=== PATIENT | female | born 1985 | race Caucasian/White ===

== ENCOUNTER 2022-07-01 09:17 | Outpatient (CLI) | payer BC, SELFPAY ==
--- NOTE | ~2022-07-01 | CT_ITS ---
EXAMINATION: CT abdomen pelvis wo con DATE: 07/01/2022 10:13 INDICATION: Back pain. Nausea, vomiting, diarrhea, fever, chills. Proteinuria. TECHNIQUE: Computed tomography (CT) of the abdomen and pelvis was performed without intravenous contr ast. Automated exposure control and iterative reconstruction technique were employed. Exam dose: 511 .15 mGy-cm total exam DLP. COMPARISON: None. FINDINGS: Posteromedial basilar right lower lobe calcified pulmonary granuloma. Minimal discoid atele ctasis or scarring at the lung bases. No basilar consolidation. Normal heart size. No pericardial or pleural effusion. Small sliding hiatal hernia. The liver, gallbladder, bile ducts, pancreas and pancreatic duct as well as the spleen appear normal. Normal morphology of the adrenal glands. There is a pinpoint nonobstructing right renal calculus. No other urinary tract calculus or hydrouret eronephrosis. No renal mass lesion or scarring is detected on this limited noncontrast examination. Normal caliber of the abdominal aorta. No intraperitoneal or retroperitoneal or pelvic mass lesion or adenopathy or ascites is detected. The urinary bladder, uterus and adnexal areas are unremarkable. Normal appendix. There are fluid distended small bowel segments without abnormal dilatation, with occ asional air-fluid levels which may represent enteritis or mild adynamic ileus. No bowel obstruction, bowel wall thickening, pneumatosis, intraperitoneal free air or portal venous gas. Very small fat-containing umbilical hernia. Moderate moderate loss of height and anterior wedging of T9 with Schmorl's nodes, chronic. No suspici ous osteolytic or osteoblastic lesions. IMPRESSION: Nondilated fluid containing small bowel with air-fluid levels, which may be due to enter itis or mild adynamic ileus No bowel obstruction or intraperitoneal free air Normal appendix Reviewed, dictated and finalized at [facility]. Reviewed, dictated and finalized at location [facility]. ESS SPECIALIST IMPRESSION: Nondilated fluid containing small bowel with air-fluid levels, whi ch may be due to enteritis or mild adynamic ileus No bowel obstruction or intraperitoneal free air Normal appendix
[2022-07-01 10:13] LABS: Basophils Percent Auto 0.3 % (0.2-1.2); Eosinophils Absolute Auto 0.1 K/mm3 (0-0.3); Eosinophils Percent Auto 1.7 % (0-4.4); Hematocrit 43.9 % (37.0-47.0); Hemoglobin 14.6 g/dL (12.0-15.0); Immature Granulocyte Absolute 0.03 K/mm3 (0.00-0.031); Immature Granulocyte Percent A 0.5 % (0-0.5); Lymphocytes Absolute Auto 0.97 K/mm3 (0.9-3.2); Lymphocytes Percent Auto 14.8 % (18.3-44.2); Mean Corpuscular HGB Conc 33.3 g/dl (32-36); Mean Corpuscular Hemoglobin 29.1 pg (26-34); Mean Corpuscular Volume 87.5 fl (80-100); Mean Platelet Volume 9.5 fl (7.4-10.4); Monocytes Absolute Auto 0.4 K/mm3 (0.1-0.6); Monocytes Percent Auto 5.6 % (2.6-8.5); Neutrophils Absolute Auto 5.1 K/mm3 (1.3-6.7); Neutrophils Percent Auto 77.1 % (45.5-73.1); Platelet Count Result 243 k/mm3 (150-375); Red Blood Count 5.02 M/mm3 (4.2-5.4); Red Cell Distribution Width 12.8 % (11.5-14.5); White Blood Count 6.6 K/mm3 (4.5-10.0)
[2022-07-01 10:31] LABS: Alanine Aminotransferase 24 U/L (6-35); Albumin Level 4.3 g/dL (3.5-5.1); Alkaline Phosphatase 92 U/L (38-126); Anion Gap 10 mmol/L (8-16); Aspartate Amino Transferase 28 U/L (14-36); Bilirubin,Total 0.5 mg/dL (0.2-1.3); Blood Urea Nitrogen 13 mg/dL (7-17); CRP 7.1 mg/dL (<1.0); Calcium 8.4 mg/dL (8.4-10.2); Carbon Dioxide 25 mmol/L (22-30); Chloride 100 mmol/L (98-107); Estimated Glomerular Filt Rate > 60; Glucose 93 mg/dL (65-110); Potassium 3.7 mmol/L (3.4-5.0); Sodium 135 mmol/L (137-145)
[2022-07-01 11:14] LABS: Erythrocyte Sedimentation Rate 11 mm/hr (0-20)
[2022-07-05 09:02] LABS: ANA Cascade Screen Negative (Negative)
== END 2022-07-01 09:18 | disposition home or self-care (01) ==
PROVIDERS: PCP Family Medicine; Visit Provider Family Medicine
DX: R11.2 Nausea with vomiting, unspecified (principal); R80.9 Proteinuria, unspecified; R52 Pain, unspecified
CPT/HCPCS: 36415; 74176; 80053; 85025; 85652; 86038; 86140

== ENCOUNTER 2025-07-23 12:46 | Outpatient (CLI) | payer OTHER, SELFPAY ==
--- NOTE | ~2025-07-23 | US_ITS ---
EXAMINATION: US thyroid DATE: 07/23/2025 13:26 INDICATION: History of goiter. TECHNIQUE: Multiple ultrasound images of the thyroid were obtained. COMPARISON: None. FINDINGS: The right thyroid lobe measures 4.4 x 1.5 x 1.6 cm cm. The left thyroid lobe measures 5. 2 x 2 by 1.6 cm cm. The altered echotexture of the thyroid gland suggests chronic thyroid disease with heterogeneous echotexture. Fairly well- defined moderately hyperechoic nodule in the inferior left lobe of the thyroid gland measures 2 x 1.6 cm in size. The shape of the nodule is circular without microcalcifications. No other focal lesions. IMPRESSION: 1. Evaluation limited due to lack of prior imaging studies for comparison of the thyroid. 2. Normal size thyroid gland with altered echotexture due to chronic thyroid disease. Please correlate with lab results. 3. Fairly well-circumscribed rounded, mildly hyperechoic nodule in the lower left lobe of the thyroid gland 2 x 1.6 centimeters in size. Indeterminate lesion at this time. Probably benign morphology. Comparison with prior studies is indicated. Short interval follow-up at 6 months is suggested. Ti rads category 3 Reviewed, dictated and finalized at location T. OM TURNING LATHE TURNER IMPRESSION: 1. Evaluation limited due to lack of prior imaging studies for comparison of th e thyroid. 2. Normal size thyroid gland with altered echotexture due to chronic thyroid di sease. Please correlate with lab results. 3. Fairly well-circumscribed rounded, mildly hyperechoic nodule in the lower le ft lobe of the thyroid gland 2 x 1.6 centimeters in size. Indeterminate lesion at this time. Probably benign morphology. Comparison with prior studies is tacho cated. Short interval follow-up at 6 months is suggested. Ti rads category 3
--- NOTE | ~2025-07-23 | MMUS_ITS ---
EXAMINATION: US axilla RT, MM diagnostic sara BI w shelby HISTORY: Palpable abnormality, right axilla TECHNIQUE: Craniocaudal and mediolateral oblique 3-D tomosynthesis images were obtained and synthetic 2-D images were generated. CAD analysis was submitted and interpreted. Grayscale sonography over the area(s) of interest with color Doppler if there is a finding. COMPARISON: None available. BREAST PARENCHYMAL COMPOSITION: Dense: The breasts are heterogeneously dense MAMMOGRAM FINDINGS: There is a mass in the right axilla, corresponding to the palpable abnormality. There are no suspicious calcifications. No unexplained architectural distortion is seen. There are no skin or nipple abnormalities identified. There is no adenopathy seen on the images submitted. ULTRASOUND FINDINGS: Sonography through the area of palpable concern in the right axilla demonstrates a macrolobulated hypoechoic mass, which is mildly heterogeneous in echotexture. The maximum dimension is 2.6 cm. It has a parallel orientation. Only benign-appearing lymph nodes are seen elsewhere. IMPRESSION: Mass in the right axilla, seen by both mammography and ultrasound. Ultrasound- guided core biopsy is recommended. BI-RADS 4 - Suspicious for malignancy. Tissue diagnosis is recommended. Reviewed, dictated and finalized at location C. STANT ART DIRECTOR IMPRESSION: Mass in the right axilla, seen by both mammography and ultrasound. Ultrasound-g uided core biopsy is recommended. BI-RADS 4 - Suspicious for malignancy. Tissue diagnosis is recommended.
== END 2025-07-23 12:47 | disposition home or self-care (01) ==
LOC: MICIMG 12:47
PROVIDERS: PCP Family Medicine; Visit Provider Physician Assistant
DX: E04.9 Nontoxic goiter, unspecified (principal); R92.8 Other abnormal and inconclusive findings on diagnostic imaging of breast
CPT/HCPCS: 76536; 76882; 77062; 77066; G0279

== ENCOUNTER 2025-07-29 07:41 | Outpatient (CLI) | payer OTHER, SELFPAY ==
--- NOTE | ~2025-07-29 | MMUS_ITS ---
PROCEDURE: US_BXSTAXLIMG_US, MM post biopsy diagnostic RT. CLINICAL HISTORY: 40-year-old female with suspicious mass in the right axilla presents for ultrasound-guided core needle biopsy procedure. COMPARISON: 07/23/2025 Following informed consent including risks, benefits, and possible complications, the patient was brought to the ultrasound suite. A time-out procedure was performed. A preliminary ultrasound of the right axilla was performed, redemonstrating an heterogeneous mass. The patient was prepped and draped in the usual sterile fashion. 1% lidocaine was instilled into the subcutaneous tissues. 1% lidocaine without epinephrine was injected into the deep tissues just inferior to the lesion. Approximately 15cc lidocaine was administered. A small skin gabi was made. Multiple core samples were obtained with a 13-gauge vacuum assisted biopsy needle. A post biopsy metal marker was placed at the biopsy site. Postprocedural mammogram of the right axilla in mediolateral projections reveal the post biopsy [facility] butterfly marker in good position. The patient tolerated the procedure well and was without immediate postprocedural complications. IMPRESSION: Successful ultrasound guided biopsy of right axilla mass. A post biopsy metal marker was placed at the biopsy site, which is seen on postprocedural mammogram. The patient tolerated the procedure well without immediate postprocedure complications. The patient was given postprocedural instructions and sent home in stable condition. Pathology result pending. Reviewed, dictated and finalized at location A. STRIAL SALES MANAGER IMPRESSION: Successful ultrasound guided biopsy of right axilla mass. A post bi opsy metal marker was placed at the biopsy site, which is seen on postprocedura l mammogram. The patient tolerated the procedure well without immediate postprocedure compli cations. The patient was given postprocedural instructions and sent home in sta ble condition. Pathology result pending.
--- NOTE | 2025-07-29 08:46 | S_PTH ---
PATIENT: Jacob Storey LOC: [facility] U#:[id number] AGE/SX: 40/F ROOM: RE07/29/[address]: Ani Muhammad PA-C : 1985 BED: DIS: 07/29/2025 SPEC #: [id number] RECD: 07/29/25 10:55 STATUS: PATRICIA REToni #: [id number] ABDOUL: 07/29/25 08:[address]: Ani Muhammad DEPT: [facility] Surgical RECD BY: Naomy Harrison ENTERED: 07/29/25 10:56 SP TYPE: Surgical OTHR DR: Alexis Wolf MD Tissues: A - Axillary Contents Procedures: Hematoxylin and Eosin Stain Gross and Microscopic Level 4
== END 2025-07-29 07:42 | disposition home or self-care (01) ==
LOC: ANHFOHIMG 07:45
PROVIDERS: PCP Family Medicine; Visit Provider Physician Assistant
DX: R92.8 Other abnormal and inconclusive findings on diagnostic imaging of breast (principal)
CPT/HCPCS: 20999; 76942; 77065; 88305; A4648